=== PATIENT | male | born 1955 | race African-American/Black ===

== ENCOUNTER 2021-06-08 16:58 | Inpatient (IN) | payer OTHER ==
[~2021-06-08] VITALS: Ht 188 cm; Wt 103.4 kg
[~2021-06-08 16:58] MED LIST: AMLO-213 PO; ENAL20TA18 PO
--- NOTE | 2021-06-08 16:58 | NUR ---
PT BIBS FOR C/O ON AND OFF NON-RADIATING CP FROM LAST NIGHT TILL TODAY NOON. NO CHEST PAIN COMPLAINT THIS TIME. PT IS AAOX4, NOT IN RESPIRATORY DISTRESS, HOOKED TO MIXER PIGMENT, KEPT RESTED AND COMFORTABLE. WILL CONTINUE TO MONITOR.
--- NOTE | 2021-06-08 17:23 | NUR ---
PT SEEN AND EXAMINED BY .
--- NOTE | 2021-06-08 17:30 | NUR ---
IV LINE ESTABLISHED BLOOD DRAWN AND SENT TO LAB.
[2021-06-08] MEDS ORDERED: LABETALOL HCL IV 100MG VIAL ONE (18:15)
[2021-06-08 18:18] LABS: BASOPHILS # (AUTO) 0.1 K/uL (0.0-0.2); BASOPHILS % (AUTO) 0.6 % (0.0-2.0); EOSINOPHILS % (AUTO) 0.8 % (0.0-6.0); HEMATOCRIT 39 % (39-51); HEMOGLOBIN 12.7 g/dL (13.5-17.5); LYMPHOCYTES % (AUTO) 11.5 % (20.0-44.0); MEAN CORPUSCULAR HGB CONC 33 g/dl (31.0-36.0); MEAN CORPUSCULAR VOLUME 91 fL (80-96); MONOCYTES # (AUTO) 0.7 K/uL (0.1-1.30); MONOCYTES % (AUTO) 8.6 % (2.0-12.0); NEUTROPHILS # (AUTO) 6.8 K/uL (1.8-8.9); NEUTROPHILS % (AUTO) 78.5 % (43.0-81.0); PLATELET COUNT (AUTO) 232 K/uL (150-450); WHITE BLOOD COUNT (AUTO) 8.6 K/uL (4.3-11.0)
[2021-06-08] MEDS ORDERED: LABETALOL HCL IV 100MG VIAL IV ONE ×2 (18:30→19:30)
[2021-06-08 19:13] LABS: CALCIUM, SERUM 8.9 mg/dL (8.5-10.1); CARBON DIOXIDE 27 mmol/L (21-32); CHLORIDE 102 mmol/L (98-107); GLUCOSE 115 mg/dL (74-106); POTASSIUM 3.5 mmol/L (3.5-5.1); SODIUM SERUM 139 mmol/L (136-145); UREA NITROGEN, BLOOD 43 mg/dL (7-18)
[2021-06-08] MEDS ORDERED: DILTIAZEM HCL 25 MG IV ONE (19:42)
[2021-06-08] MEDS ORDERED: NICARDIPINE HCL 40 MG in IV NS 0.9% 184 ML IV PRN (20:00)
--- NOTE | 2021-06-08 20:07 | NUR ---
MOVE SHEET SUBMITTED
--- NOTE | 2021-06-08 20:18 | NUR ---
COVID ANTIGEN SWAB COLLECTED AND SENT TO LAB
--- NOTE | 2021-06-08 20:50 | NUR ---
CARDENE DRIP INTIATED AT 5MG/HR PER PROTOCOL.
--- NOTE | 2021-06-08 21:10 | NUR ---
Monisha mccauley in [facility] - 06/08/21 at 2129 by ADEBAYO CARDENE DRIP TITRATED BY 2.5 MG PER PROTOCOL. CURRENT INFUSION 7.25MG/HR.
--- NOTE | 2021-06-08 21:10 | NUR ---
CARDENE DRIP TITRATED BY 2.5 MG PER PROTOCOL. CURRENT INFUSION 7.5MG/HR.
--- NOTE | 2021-06-08 21:20 | NUR ---
CARDENE DRIP TITRATED BY 2.5 MG PER PROTOCOL. CURRENT INFUSION 10MG/HR.
--- NOTE | 2021-06-08 21:29 | NUR ---
ASSIGNED TO 256 DR[address] COLE
--- NOTE | 2021-06-08 21:31 | NUR ---
DR. LAW PENNY SPEAKING TO DR. DOUGLAS PENNY.
--- NOTE | 2021-06-08 21:40 | NUR ---
CARDENE DRIP TITRATED DOWN BY 2.5MG. CURRENTLY INFUSING AT 7.5MG/HR.
[2021-06-08] MEDS ORDERED: ZOLPIDEM TARTRATE 5 MG TABLET PO PRN (22:00)
[2021-06-08] MEDS ORDERED: CLONIDINE HCL 0.1 MG TABLET PO PRN (22:00)
[2021-06-08] MEDS ORDERED: HYDROCODONE/APAP 5/325MG TABLET PO PRN (22:00)
[2021-06-08] MEDS ORDERED: NIFEdipine XL (30MG) 30 MG TAB PO SCH (22:00)
[2021-06-08] MEDS ORDERED: ACETAMINOPHEN 325 MG TABLET PO PRN (22:00)
--- NOTE | 2021-06-08 22:00 | NUR ---
CARDENE DRIP TITRATED TO 8.5MG/HR
--- NOTE | 2021-06-08 22:21 | NUR ---
REPORT GIVEN TO KRISTYN IN ICU
--- NOTE | 2021-06-08 22:23 | NUR ---
ULTRASOUND AT BEDSIDE
--- NOTE | 2021-06-08 22:49 | NUR ---
PT TRANSPORTED TO ROOM 256 ON DRAWING IN HAND PER ACLS PROTOCOL VIA RTRINIDAD. CARDENE INFUSING AT 8.5MG/HR VIA 18G RAC IV LINE. ALL V/S STABLE AT TIME OF TRANSFER.
--- NOTE | 2021-06-08 23:00 | NUR ---
ICU/RN: RECEIVED PT ACCOMPANIED BY ER STAFF. PT AMBULATED FROM GURNEY TO BED WITH ISSUE. PT HAS STEADY GAIT. HOOKED UP TO MONITOR. VITAL PER FLOW SHEET. A/Ox4. PT USED URINAL 1OOML CLEAR YELLOW URINE OUTPUT. PT RECEIVING CARDENE DRIP AT 8.5/G HOUR VIA RIGHT AC [address] COLE GIVE PROCARDIA AND DC DRIP. ORDERS CARRIED OUT. PT SKIN IS INTACT. PT EDUCATED YOUTH AGENT LIGHT AND ORIENTED TO HIM ROOM. BELONGINGS CHECKED AND CATALOGED BED IN LOWEST LOCKED POSITION. SIDE RAILS UP x2. WILL CONTINUE TO MONITOR.
[2021-06-08 23:09] VITALS: BP 148/87
[2021-06-08 23:11] VITALS: BP 148/63
[2021-06-08 23:36] VITALS: BP 145/92
[2021-06-08 23:45] VITALS: BP 151/91
[2021-06-09] VITALS (23 sets, daily range): BP systolic 115–174; BP diastolic 62–135
[2021-06-09 04:23] LABS: BASOPHILS # (AUTO) 0.1 K/uL (0.0-0.2); BASOPHILS % (AUTO) 0.8 % (0.0-2.0); HEMATOCRIT 35 % (39-51); HEMOGLOBIN 11.7 g/dL (13.5-17.5); LYMPHOCYTES # (AUTO) 1.1 K/uL (0.8-4.8); MEAN CORPUSCULAR HGB CONC 33 g/dl (31.0-36.0); MEAN CORPUSCULAR VOLUME 90 fL (80-96); MONOCYTES # (AUTO) 0.7 K/uL (0.1-1.30); MONOCYTES % (AUTO) 9.5 % (2.0-12.0); NEUTROPHILS # (AUTO) 5.2 K/uL (1.8-8.9); NEUTROPHILS % (AUTO) 72.7 % (43.0-81.0); PLATELET COUNT (AUTO) 208 K/uL (150-450); WHITE BLOOD COUNT (AUTO) 7.2 K/uL (4.3-11.0)
[2021-06-09 04:38] LABS: CALCIUM, SERUM 8.8 mg/dL (8.5-10.1); CREATININE 4.7 mg/dL (0.6-1.3); POTASSIUM 4.1 mmol/L (3.5-5.1)
--- NOTE | 2021-06-09 07:12 | NUR ---
ICU/RN: SPOKE WITH DR. COLE AND GAVE UPDATE ON PT. NEW ORDER RECIEVED TO INCREASE PROCARDIA TO 90MG PO DAILY AND TRANSFER PT TO TELEMETRY FLOOR.
--- NOTE | 2021-06-09 07:40 | NUR ---
ICU/RN PT IS RESTING IN THE BED ON ROOM AIR ,SAT O2-98%.V/S STABLE,AFEBRILE.NO PAIN REPORTED AT THIS TIME.PT IS AWAKE,ALERT.ORIENTED.AMBULATING IN THE ROOM .USE URINAL .IV-HL.LABS REVIEW.MD AWARE.PT IS STABLE TO TRANSFER TO TELE UNIT.DR KENNEDY SEEN THE PT.WAITING FOR THE BED.
[2021-06-09] MEDS: NIFEdipine XL (30MG) 30 MG TAB PO SCH (08:27)
[2021-06-09] MEDS ORDERED: hydrALAZINE HCL 50 MG TABLET PO SCH (09:00)
[2021-06-09] MEDS ORDERED: NITROGLYCERIN 30 GM TUBE TP SCH (09:00)
[2021-06-09] MEDS ORDERED: ASPIRIN EC 81 MG TABLET.DR PO ONE (09:00)
[2021-06-09 09:52] LABS: CHOLESTEROL 153 mg/dL (<200); HDL CHOLESTEROL 47 mg/dL (40-60); LDL 95 mg/dL (0-99)
[2021-06-09 09:53] LABS: TRIGLYCERIDES 60 mg/dL (30-150)
[2021-06-09] MEDS: METOPROLOL SUCCINATE 50 MG TAB.SR.24H PO SCH (11:41)
[2021-06-09 16:39] LABS: CREATININE, URINE 93.7 MG/DL (30.0-125.0); URINE TOTAL PROTEIN 107.4 mg/dL (0-11.9)
--- NOTE | 2021-06-09 18:35 | NUR ---
ICU/RN PM CARE PROVIDED.PT TRANSFERRED TO TELE UNIT ROOM 325-1.V/S STABLE,AFEBRILE NO PAIN REPORTED AT THIS TIME.
--- NOTE | 2021-06-09 18:50 | NUR ---
RN Close Note Patient transferred from ICU reported by Teri CARDENAS, admitting Dx are chest pain, and CHF. AO x 4, able to responds all stimuli. Denies distress. Respiratory even and unlabored on room air. Skin is warn to touch, intact IV site. Call light within reach, will continue to monitor.
--- NOTE | 2021-06-09 19:45 | NUR ---
CASE BRIEFER NOTES RECEIVED LAYING COMFORTABLY ON BED,ALERT/ORIENTED X4,BREATHING EVEN AND UNLABORED,SALINE LOCK TO BOTH ARMS INTACT AND PATENT.DENIES CHEST DISCOMFORTS,INSTRUCTED NPO POST MIDNIGHT,GOING FOR NUCLEAR MEDICINE STRESS TEST IN THE MORNING,CALL LIGHT IN REACH,NEEDS ANTICIPATED.
[2021-06-09 21:17] LABS: THYROID STIMULATING HORMONE 4.83 uIU/mL (0.358-3.74)
[2021-06-09] MEDS ORDERED: ATORVASTATIN 40 MG TABLET PO SCH (22:00)
[2021-06-10] VITALS: BP_SYST 152; BP_DIAS 9; BP_DIAS 99
--- NOTE | 2021-06-10 | NUR ---
DIRECTOR OF MAINTENANCE NOTES NPO THIS TIME
[2021-06-10 04:00] VITALS: BP 138/84
--- NOTE | 2021-06-10 05:30 | NUR ---
PRINT SHOP STENOGRAPHER NOTES CONSENT SIGNED BY PATIENT GOING FOR [place] NUCLEAR STRESS TEST.
--- NOTE | 2021-06-10 06:00 | NUR ---
SALES REPRESENTATIVE PRINTING NOTES NEW SALINE LOCK PLACE ON RIGHT FOREARM #20,KEPT PATENT.OLD SALINE LOCK REMOVED,NO BLOOD RETURN.
[2021-06-10 06:32] LABS: BASOPHILS # (AUTO) 0.1 K/uL (0.0-0.2); BASOPHILS % (AUTO) 0.8 % (0.0-2.0); EOSINOPHILS % (AUTO) 2.8 % (0.0-6.0); HEMATOCRIT 36 % (39-51); HEMOGLOBIN 11.9 g/dL (13.5-17.5); LYMPHOCYTES # (AUTO) 1.6 K/uL (0.8-4.8); LYMPHOCYTES % (AUTO) 19.4 % (20.0-44.0); MEAN CORPUSCULAR HGB CONC 33 g/dl (31.0-36.0); MEAN CORPUSCULAR VOLUME 91 fL (80-96); MONOCYTES # (AUTO) 0.8 K/uL (0.1-1.30); MONOCYTES % (AUTO) 10.1 % (2.0-12.0); NEUTROPHILS # (AUTO) 5.4 K/uL (1.8-8.9); NEUTROPHILS % (AUTO) 66.9 % (43.0-81.0); PLATELET COUNT (AUTO) 225 K/uL (150-450); RED BLOOD CELL COUNT(AUTO) 3.99 MIL/uL (4.5-6.0); WHITE BLOOD COUNT (AUTO) 8.1 K/uL (4.3-11.0)
--- NOTE | 2021-06-10 06:56 | NUR ---
REMANUFACTURING TECHNICIAN NOTES SR-[id number] ON TELE MONITOR,KEPT NPO FOR THE PROCEDURE,NO SON NOTED,DENIES CHEST PAIN,IN NO ACUTE DISTRESS.
--- NOTE | 2021-06-10 07:30 | NUR ---
FINANCIAL ANALYSIS CONSULTANT NOTES PT IN BED, AWAKE, ALERT AND ORIENTED, DENIES PAIN, RESPIRATIONS NORMAL, CALL LIGHT WITHIN REACH, FOR STRESS TEST TODAY, PT INFORMED OF PLAN OF CARE.
[2021-06-10 07:31] LABS: CALCIUM, SERUM 8.7 mg/dL (8.5-10.1); CREATININE 4.9 mg/dL (0.6-1.3); POTASSIUM 3.8 mmol/L (3.5-5.1)
[2021-06-10 08:00] VITALS: BP 154/89
[2021-06-10] MEDS ORDERED: REGADENOSON 0.4 MG/5 ML DISP.SYRIN IVP ONE (08:00)
--- NOTE | 2021-06-10 10:20 | NUR ---
NM: CARDIAC STRESS TEST WAS COMPLETED. TECH:RB
--- NOTE | 2021-06-10 10:48 | NUR ---
MEAT MARKET MANAGER NOTES PT BACK FROM STRESS TEST VIA WHEELCHAIR, TOLERATED PROCEDURE WELL, NEEDS ATTENDED.
[2021-06-10] MEDS: METOPROLOL SUCCINATE 50 MG TAB.SR.24H PO SCH (10:53)
[2021-06-10] MEDS: NIFEdipine XL (30MG) 30 MG TAB PO SCH ×2 (10:54→16:55)
[2021-06-10] MEDS ORDERED: NIFEdipine XL (30MG) 30 MG TAB PO ONE (12:30)
[2021-06-10] MEDS: hydrALAZINE HCL 25 MG TABLET PO SCH ×2 (12:48→20:50)
--- NOTE | 2021-06-10 18:10 | NUR ---
RN CLOSE NOTES RESIDENT IN BED, ALERT AND ORIENTED X4, ABLE TO VERBALIZE NEEDS. NO ACUTE DISTRESS NOTED. AMBULATORY. NO C/O OF CHEST PAIN OR SOB. WITH EPISODES OF HYPERTENSION, MD AWARE AND HYPERTENSIVE DRUGS ADJUSTED. C/L WITHIN REACH. ALL NEEDS ATTENDED.
--- NOTE | 2021-06-10 19:37 | NUR ---
RN OPENING NOTES RECEIVED PT IN BED, AWAKE. AOx4, ABLE TO MAKE NEEDS KNOWN. ON RA AND TOLERATING WELL. NO SOB NOTED. NO S/SX OF RESPIRATORY DISTRESS NOTED. IV ACCESS IN RFA #20. IV IS INTACT, PATENT , AND FLUSHING WELL. SAFETY PRECAUTIONS IN PLACE: BED IN LOWEST, LOCKED POSITION, SIDERAILS UPx2, AND BRAKES ON. TABLE AND CALL LIGHT WITHIN REACH. WILL CONTINUE TO MONITOR.
[2021-06-10 21:38] VITALS: BP 156/96
[2021-06-11 00:14] VITALS: BP 141/90
[2021-06-11 04:29] VITALS: BP 139/94
[2021-06-11] MEDS: hydrALAZINE HCL 25 MG TABLET PO SCH ×2 (04:35→12:15)
[2021-06-11 06:35] LABS: CALCIUM, SERUM 8.7 mg/dL (8.5-10.1); CREATININE 4.6 mg/dL (0.6-1.3); POTASSIUM 4.1 mmol/L (3.5-5.1)
--- NOTE | 2021-06-11 06:49 | NUR ---
RN CLOSING NOTES PT IN BED, AWAKE. AOx4, ABLE TO MAKE NEEDS KNOWN. ON RA AND TOLERATING WELL. NO SOB NOTED. NO S/SX OF RESPIRATORY DISTRESS NOTED. IV ACCESS IN RFA #20. IV IS INTACT, PATENT , AND FLUSHING WELL. ALL NEEDS MET. PT KEPT CLEAN AND DRY. ALL ORDERS CARRIED OUT. SAFETY PRECAUTIONS IN PLACE: BED IN LOWEST, LOCKED POSITION, SIDERAILS UPx2, AND BRAKES ON. TABLE AND CALL LIGHT WITHIN REACH. WILL ENDORSE TO ONCOMING SHIFT FOR FAITH.
--- NOTE | 2021-06-11 07:18 | NUR ---
PLAYBACK OPERATOR OPENING NOTES RECEIVED PATIENT IN BED, AROUSABLE VIA NAME TO A/O X 4. EXTERNAL TRIMMER HAND READING NSR 60. PATIENT ON ROOM AIR WITH BREATHING SYMMETRICAL AND NO S/S OF RESPIRATORY DISTRESS AT THIS TIME. R FA 20 G SALINE LOCK PATENT AND FLUSHING WELL. SAFETY PRECAUTIONS IN PLACE: BED IN LOWEST, LOCKED POSITION, SIDERAILS UPx2, AND BRAKES ON. TABLE AND CALL LIGHT WITHIN REACH. WILL CONTINUE TO MONITOR.
[2021-06-11 08:33] VITALS: BP 141/80
[2021-06-11] MEDS: NIFEdipine XL (30MG) 30 MG TAB PO SCH ×2 (08:58→17:01)
[2021-06-11] MEDS: METOPROLOL SUCCINATE 50 MG TAB.SR.24H PO SCH (12:16)
[2021-06-11] MEDS ORDERED: METO50TA7 PO (13:32)
[2021-06-11] MEDS ORDERED: HYDR-4076 PO (13:32)
[2021-06-11] MEDS ORDERED: NIFE-35 PO (13:32)
[2021-06-11] MEDS ORDERED: EMPA10TA PO (13:45)
[2021-06-11] MEDS ORDERED: SACU1TAB PO (13:45)
[2021-06-11 16:17] VITALS: BP 139/86
[2021-06-11 17:01] VITALS: BP 139/86
--- NOTE | 2021-06-11 18:00 | NUR ---
MS OVEN HEATER HELPER NOTES PATIENT A/O X 3, ABLE TO MAKE NEEDS KNOWN. DISCHARGE INSTRUCTIONS AND FOLLOW-UP ORDERS PROVIDED TO PATIENT, AND PATIENT PATIENT VERBALIZED UNDERSTANDING. PATIENT VERBALIZED POSSESSION OF ALL BELONGINGS, ALL SIGNATURES OBTAINED. PATIENT VITAL SIGNS STABLE PRIOR TO DISCHARGE. SALINE LOCKS AND ARM BAND REMOVED. PATIENT TRANSFERRED FROM FLOOR BY ODALYS CANTU VIA WHEELCHAIR INTO THE CARE OF PATIENT'S ROOMMATE JOÃO.
== END 2021-06-11 18:32 | disposition home or self-care (01) | DRG 280 ==
LOC: ER 17:00 → ICU 22:19 → TELE 06-09 18:47
PROVIDERS: ADMIT Internal Medicine; ATTEND Nurse Practitioner Family
DX: I16.1 Hypertensive emergency (principal); I21.A1 Myocardial infarction type 2; I50.33 Acute on chronic diastolic (congestive) heart failure; N17.9 Acute kidney failure, unspecified; N18.5 Chronic kidney disease, stage 5; I42.9 Cardiomyopathy, unspecified; E78.5 Hyperlipidemia, unspecified; D64.9 Anemia, unspecified; I13.2 Hypertensive heart and chronic kidney disease with heart failure and with stage 5 chronic kidney disease, or end stage renal disease; N27.1 Small kidney, bilateral; Z91.19 Patient's noncompliance with other medical treatment and regimen; Z20.822 Contact with and (suspected) exposure to COVID-19
CPT/HCPCS: 36415; 71045-TC; 76700-TC; 76856-TC; 80048-TC; 80061-TC; 82570-TC; 83880; 83970; 84155-TC; 84300-TC; 84443-TC; 84484-TC; 85025-TC; 87081-TC; 93307-TC; A9502; G0378; J2785; J3490; J7050